=== PATIENT | female | born 1990 | race Two or more races ===

== ENCOUNTER 2021-09-08 17:21 | Emergency (ER) | payer SELFPAY ==
[~2021-09-08] VITALS: Ht 175.3 cm; Wt 63.5 kg
[2021-09-08 17:21] VITALS: BP 109/65
[2021-09-08] MEDS ORDERED: BAC09TP TOP (21:28)
[2021-09-08] MEDS ORDERED: NAP500T PO (21:28)
[2021-09-08] MEDS ORDERED: KETOROLAC TROMETH 60MG/2ML VIAL IM ONE (21:30)
[2021-09-08] MEDS ORDERED: TETANUS-DIPTH-ACEL PERTUSSIS 0.5ML SYR Tdap IM ONE (21:30)
== END 2021-09-08 22:05 | disposition home or self-care (01) ==
LOC: ER 17:21 → EDBD 17:21 → EDSEX 17:21 → ER 22:05
DX: S00.83XA Contusion of other part of head, initial encounter (principal); V43.52XA Car driver injured in collision with other type car in traffic accident, initial encounter; Y93.89 Activity, other specified; Y92.410 Unspecified street and highway as the place of occurrence of the external cause; Y99.8 Other external cause status
CPT/HCPCS: 70450; 70486; 81025; 90471; 90715; 96372; 99284; J1885